=== PATIENT | male | born 1980 | race Caucasian/White ===

== ENCOUNTER 2017-05-07 14:15 | Observation (INO) | payer OTHER ==
[2017-05-07] MEDS ORDERED: Sodium Chloride 0.9% 1000 ML 1,000 ML IV STA ×2 (14:27→15:40)
[2017-05-07] MEDS ORDERED: THIAMINE 200 MG/2 ML IV ONE (14:27)
--- NOTE | 2017-05-07 14:34 | ERPHSYRPT ---
- History of Present Illness Time Seen by Provider: 05/07/17 14:28 Source: patient Exam Limitations: other (patient quite suspicious and confrontational) Patient Subjective Stated Complaint: PT BROUGHT TO ED AFTER DRINKING THIS AM BY POLICE-WHEN ASKED IF HE WAS TRYING TO HURT HIMSELF PT STATES THAT HE DOESN'T KNOW-BECOMES TEARFUL-PT DOES NOT ANSWER WHEN ASKED WHAT HAPPENED TODAY-PT DENIES ANY DRUG USE Triage Nursing Assessment: PT PINK WARM ET DRY-ALERT TO PERSON PLACE-UNSURE OF TIME-MOVING CURT XTREMITIES WITH EASE-RESP NONLABORED ET EASY-PUPILS REACTIVE Physician History: This is a 36-year-old white male brought by his father. Patient is not quite sure why he is here, he states that he has been feeling bad for a long time he states she's been depressed when I initially asked him if he is wanting to hurt himself he says yes when I ask him how he wants to hurt himself, he states "what are you talking about man" Patient appears to be alert active He will not answer my questions after short interview He does allow me to examine him. Past medical history patient does not give past medical history to me The patient becomes confrontational start saying what are you trying to do when I asked him about medical problems. Timing/Duration: today Severity: moderate Associated Symptoms: other (patient feeling depressed), No nausea, No vomiting, No abdominal pain, No shortness of breath, No heartburn, No diaphoresis, No cough, No chills, No chest pain, No fever, No headaches, No loss of appetite, No malaise, No rash, No syncope, No seizure, No weakness Allergies/Adverse Reactions: No Known Drug Allergies Allergy (Unverified 05/07/17 14:25) Home Medications: No Home Meds 1 ea MC UD 05/07/17 [History] Hx Tetanus, Diphtheria Vaccination/Date Given: No Hx Influenza Vaccination/Date Given: No Hx Pneumococcal Vaccination/Date Given: No Immunizations Up to Date: Yes - Review of Systems Constitutional: No Fever, No Chills Eyes: No Symptoms Ears, Nose, & Throat: No Symptoms Respiratory: No Cough, No Dyspnea Cardiac: No Chest Pain, No Edema, No Syncope Abdominal/Gastrointestinal: No Abdominal Pain, No Nausea, No Vomiting, No Diarrhea Genitourinary Symptoms: No Dysuria Musculoskeletal: No Back Pain, No Neck Pain Skin: No Rash Neurological: No Dizziness, No Focal Weakness, No Sensory Changes Psychological: Other (patient admits to feeling depressed will not discuss alcohol or drug use, initially states he wants to harm himself, but then when I ask him if he has a plan he"wha statest are you talking about" when I ask him about alcohol or drugs he states" what are you trying to do") Endocrine: No Symptoms All Other Systems: Reviewed and Negative - Past Medical History Pertinent Past Medical History: Yes Cardiac History: Hypertension - Past Surgical History Past Surgical History: No - Social History Smoking Status: Current every day smoker How long have you smoked: YRS Exposure to second hand smoke: Yes Drug Use: none Patient Lives Alone: No - Nursing Vital Signs Nursing Vital Signs: Initial Vital Signs Temperature 98.4 F Temperature Source Oral Pulse Rate 95 Respiratory Rate 20 Blood Pressure [Right Arm] 170/99 Pain Intensity 0 - Physical Exam General Appearance: other (well-developed well-nourished white male flushed in appearance oriented to himself somewhat uncooperative) Eye Exam: PERRL/EOMI, eyes nml inspection Ears, Nose, Throat Exam: normal ENT inspection, TMs normal, pharynx normal, moist mucous membranes Neck Exam: normal inspection, non-tender, supple, full range of motion Respiratory Exam: normal breath sounds, lungs clear, No respiratory distress Cardiovascular Exam: regular rate/rhythm, normal heart sounds, normal peripheral pulses Gastrointestinal/Abdomen Exam: soft, normal bowel sounds, No tenderness, No mass Back Exam: normal inspection, normal range of motion, No CVA tenderness, No vertebral tenderness Extremity Exam: normal inspection, normal range of motion, pelvis stable Neurologic Exam: alert, oriented x 3, normal mood/affect, nml cerebellar function, nml station & gait, sensation nml, No cooperative, No motor deficits Skin Exam: other (flushed in appearance) SpO2 Interpretation: normal (98%) SpO2: 98 Oxygen Delivery: Room Air - Course Nursing assessment & vital signs reviewed: Yes EKG Interpreted by Me: RATE (87 bpm), Sinus Rhythm, NORMAL AXIS, Other (EKG sinus rhythm 87 bpm with moderate amount of artifact 87 bpm normal axis essentially normal EKG) Ordered Tests: Active Orders 24 hr Category Date Time Status EKG-ER Only STAT Care 05/07/17 14:27 Active Psychiatric Evaluation STAT Care 05/07/17 16:55 Active ACETAMINOPHEN Stat Lab 05/07/17 14:39 Completed CBC W DIFF Stat Lab 05/07/17 14:39 Completed CK-Creatinine Phosphokinase Stat Lab 05/07/17 15:09 Completed CMP Stat Lab 05/07/17 14:39 Completed Ethyl Alcohol,Urine Stat Lab 05/07/17 17:30 Completed SALICYLATE Stat Lab 05/07/17 14:39 Completed TROPONIN Q3H Lab 05/07/17 14:39 Completed TROPONIN Q3H Lab 05/07/17 18:15 Ordered TROPONIN Q3H Lab 05/07/17 21:15 Ordered TROPONIN Q3H Lab 05/08/17 00:15 Ordered TROPONIN Q3H Lab 05/08/17 03:15 Ordered UA W/ MICROSCOPIC Stat Lab 05/07/17 17:30 Completed Urine Triage Profile Stat Lab 05/07/17 17:30 Completed Medication Summary Generic Name Dose Route Start Last Admin Trade Name Freq PRN Reason Stop Dose Admin Potassium Chloride/Sodium Chloride 1,000 mls @ 125 mls/hr 05/07/17 16:30 Sodium Chloride 0.45% W/ 20 Meq Kcl IV 06/06/17 16:29 .Q8H MEGAN Discontinued Medications Generic Name Dose Route Start Last Admin Trade Name Freq PRN Reason Stop Dose Admin Sodium Chloride 1,000 mls @ 999 mls/hr 05/07/17 14:27 05/07/17 14:44 Sodium Chloride 0.9% 1000 Ml IV 05/07/17 15:27 999 mls/hr .Q1H1M STA Administration Sodium Chloride Confirm 05/07/17 14:41 Sodium Chloride 0.9% 1000 Ml Administered 05/07/17 14:42 Dose 1,000 mls @ ud .ROUTE .STK-MED ONE Sodium Chloride 1,000 mls @ 999 mls/hr 05/07/17 15:40 05/07/17 15:43 Sodium Chloride 0.9% 1000 Ml IV 05/07/17 16:40 999 mls/hr .Q1H1M STA Administration Sodium Chloride Confirm 05/07/17 15:40 Sodium Chloride 0.9% 1000 Ml Administered 05/07/17 15:41 Dose 1,000 mls @ ud .ROUTE .STK-MED ONE Thiamine HCl 100 mg 05/07/17 14:27 05/07/17 14:44 Thiamine 200 Mg/2 Ml IV 05/07/17 14:28 100 mg STAT ONE Administration Thiamine HCl Confirm 05/07/17 14:41 Thiamine 200 Mg/2 Ml Administered 05/07/17 14:42 Dose 200 mg .ROUTE .STK-MED ONE Lab/Rad Data: Laboratory Result Diagrams 05/07/17 14:39 05/07/17 14:39 Laboratory Results 05/07/17 05/07/17 05/07/17 Range/Units 17:30 17:30 17:30 WBC (4.0-10.5) K/mm3 RBC (4.1-5.6) M/mm3 Hgb (12.5-18.0) gm/dl Hct (42-50) % MCV (78-100) fl MCH (26-32) pg MCHC (32-36) g/dl RDW (11.5-14.0) % Plt Count (150-450) K/mm3 MPV (6-9.5) fl Gran % (36.0-66.0) % Lymphocytes % (24.0-44.0) % Monocytes % (0.0-12.0) % Eosinophils % (0.00-5.0) % Basophils % (0.0-0.4) % Basophils # (0-0.4) Sodium (136-145) mEq/L Potassium (3.5-5.1) mEq/L Chloride (98-107) mEq/L Carbon Dioxide (21-32) mEq/L Anion Gap (5-15) MEQ/L BUN (9-20) mg/dL Creatinine (0.55-1.30) mg/dl Estimated GFR ML/MIN Glucose (70-110) MG/DL Calcium (8.5-10.1) mg/dL Total Bilirubin (0.2-1.0) mg/dL AST (15-37) U/L ALT (12-78) U/L Alkaline Phosphatase (46-116) U/L Creatine Kinase (39-308) U/L Troponin I (0.000-0.056) ng/ml Serum Total Protein (6.4-8.2) gm/dL Albumin (3.4-5.0) g/dL Ur Collection Type CLEAN CATCH Urine Color YELLOW (YELLOW) Urine Appearance CLEAR (CLEAR) Urine pH 5.5 5.5 (5-6) Ur Specific Union 1.015 (1.005-1.025) Urine Protein TRACE (Negative) Urine Glucose (UA) NEGATIVE (NEGATIVE) mg/dL Urine Ketones NEGATIVE (NEGATIVE) Urine Nitrite NEGATIVE (NEGATIVE) Urine Bilirubin NEGATIVE (NEGATIVE) Urine Urobilinogen 1 (0-1) mg/dL Urine WBC (Auto) NEGATIVE (NEGATIVE) Urine RBC (Auto) TRACE NON-HEM (0-5) Kavon/ul Urine Microscopic RBC 0-2 (0-2) /HPF Ur Epithelial Cells FEW (FEW) /HPF Salicylates (2.8-20.0) mg/dl Urine Opiates Level NEG. (NEGATIVE) Ur Methadone NEG. (NEGATIVE) Acetaminophen (10-30) ug/ml Urine Barbiturates NEG. (NEGATIVE) Ur Phencyclidine (PCP) NEG. (NEGATIVE) Urine Amphetamine NEG. (NEGATIVE) U Benzodiazepine Level NEG. (NEGATIVE) Urine Cocaine NEG. (NEGATIVE) Urine Marijuana (THC) NEG. (NEGATIVE) Urine Ethyl Alcohol 385 H (0.00-20) mg/dl Specimen Received 05/07/17:1730 05/07/17 05/07/17 05/07/17 Range/Units 15:09 14:39 14:39 WBC (4.0-10.5) K/mm3 RBC (4.1-5.6) M/mm3 Hgb (12.5-18.0) gm/dl Hct (42-50) % MCV (78-100) fl MCH (26-32) pg MCHC (32-36) g/dl RDW (11.5-14.0) % Plt Count (150-450) K/mm3 MPV (6-9.5) fl Gran % (36.0-66.0) % Lymphocytes % (24.0-44.0) % Monocytes % (0.0-12.0) % Eosinophils % (0.00-5.0) % Basophils % (0.0-0.4) % Basophils # (0-0.4) Sodium 144 (136-145) mEq/L Potassium 3.7 (3.5-5.1) mEq/L Chloride 109 H (98-107) mEq/L Carbon Dioxide 22.8 (21-32) mEq/L Anion Gap 15.4 H (5-15) MEQ/L BUN 8 L (9-20) mg/dL Creatinine 1.03 (0.55-1.30) mg/dl Estimated GFR > 60 ML/MIN Glucose 110 (70-110) MG/DL Calcium 8.2 L (8.5-10.1) mg/dL Total Bilirubin 0.90 (0.2-1.0) mg/dL AST 151 H (15-37) U/L ALT 153 H (12-78) U/L Alkaline Phosphatase 92 (46-116) U/L Creatine Kinase 140 (39-308) U/L Troponin I < 0.017 (0.000-0.056) ng/ml Serum Total Protein 7.6 (6.4-8.2) gm/dL Albumin 3.6 (3.4-5.0) g/dL Ur Collection Type Urine Color (YELLOW) Urine Appearance (CLEAR) Urine pH (5-6) Ur Specific Union (1.005-1.025) Urine Protein (Negative) Urine Glucose (UA) (NEGATIVE) mg/dL Urine Ketones (NEGATIVE) Urine Nitrite (NEGATIVE) Urine Bilirubin (NEGATIVE) Urine Urobilinogen (0-1) mg/dL Urine WBC (Auto) (NEGATIVE) Urine RBC (Auto) (0-5) Kavon/ul Urine Microscopic RBC (0-2) /HPF Ur Epithelial Cells (FEW) /HPF Salicylates < 2.8 L (2.8-20.0) mg/dl Urine Opiates Level (NEGATIVE) Ur Methadone (NEGATIVE) Acetaminophen < 2.0 L (10-30) ug/ml Urine Barbiturates (NEGATIVE) Ur Phencyclidine (PCP) (NEGATIVE) Urine Amphetamine (NEGATIVE) U Benzodiazepine Level (NEGATIVE) Urine Cocaine (NEGATIVE) Urine Marijuana (THC) (NEGATIVE) Urine Ethyl Alcohol (0.00-20) mg/dl Specimen Received 05/07/17 Range/Units 14:39 WBC 7.1 (4.0-10.5) K/mm3 RBC 4.80 (4.1-5.6) M/mm3 Hgb 16.6 (12.5-18.0) gm/dl Hct 47.4 (42-50) % MCV 98.8 (78-100) fl MCH 34.6 H (26-32) pg MCHC 35.0 (32-36) g/dl RDW 13.8 (11.5-14.0) % Plt Count 201 (150-450) K/mm3 MPV 9.9 H (6-9.5) fl Gran % 51.4 (36.0-66.0) % Lymphocytes % 41.6 (24.0-44.0) % Monocytes % 5.3 (0.0-12.0) % Eosinophils % 1.3 (0.00-5.0) % Basophils % 0.4 (0.0-0.4) % Basophils # 0.03 (0-0.4) Sodium (136-145) mEq/L Potassium (3.5-5.1) mEq/L Chloride (98-107) mEq/L Carbon Dioxide (21-32) mEq/L Anion Gap (5-15) MEQ/L BUN (9-20) mg/dL Creatinine (0.55-1.30) mg/dl Estimated GFR ML/MIN Glucose (70-110) MG/DL Calcium (8.5-10.1) mg/dL Total Bilirubin (0.2-1.0) mg/dL AST (15-37) U/L ALT (12-78) U/L Alkaline Phosphatase (46-116) U/L Creatine Kinase (39-308) U/L Troponin I (0.000-0.056) ng/ml Serum Total Protein (6.4-8.2) gm/dL Albumin (3.4-5.0) g/dL Ur Collection Type Urine Color (YELLOW) Urine Appearance (CLEAR) Urine pH (5-6) Ur Specific Union (1.005-1.025) Urine Protein (Negative) Urine Glucose (UA) (NEGATIVE) mg/dL Urine Ketones (NEGATIVE) Urine Nitrite (NEGATIVE) Urine Bilirubin (NEGATIVE) Urine Urobilinogen (0-1) mg/dL Urine WBC (Auto) (NEGATIVE) Urine RBC (Auto) (0-5) Kavon/ul Urine Microscopic RBC (0-2) /HPF Ur Epithelial Cells (FEW) /HPF Salicylates (2.8-20.0) mg/dl Urine Opiates Level (NEGATIVE) Ur Methadone (NEGATIVE) Acetaminophen (10-30) ug/ml Urine Barbiturates (NEGATIVE) Ur Phencyclidine (PCP) (NEGATIVE) Urine Amphetamine (NEGATIVE) U Benzodiazepine Level (NEGATIVE) Urine Cocaine (NEGATIVE) Urine Marijuana (THC) (NEGATIVE) Urine Ethyl Alcohol (0.00-20) mg/dl Specimen Received - Progress Progress: improved Progress Note: 05/07/17 14:36 This is a 36-year-old white male who is brought in by his father however the [employer] are present on his arrival. The patient's father apparently expressed concern over the patient's condition. When I asked the patient was going on with him he states that he feels really bad he's been depressed and when I asked him if he wants to harm himself he initially says yes. Then when I asked him if he was to harm himself how he would he do it he suddenly becomes somewhat confrontational stating "what are you talking about". When I repeat that he had mentioned that he wanted to harm himself he really did not give me an answer to this. When I asked him if he had been drinking or any substances she states "what are you trying to do. Patient did allow me to look at him but became quite suspicious he would push my hands away as I listened to his heart and the lungs and abdomen he did allow me to look at him however. 05/07/17 16:08 Patient is stable he is somnolent at this time Patient does have elevated liver enzymes (ELT and AST acetaminophen level and salicylate level within normal limits Nurses apparently are unable to get the patient to provide a urine. He is being given IV fluids. Will await urine alcohol level and urine drug screen. 05/07/17 16:28 Patient is now waking up he does not appear to be in acute distress he is now cooperative. Still awaiting urine, UDS, urine alcohol level He has received 2 L of normal saline IV will begin IV half-normal saline with 20 mEq per liter to run at 125 mL per hour. 05/07/17 18:03 Patient's blood alcohol level 0.385 patient's AST 151 and AL T 1 53. Case is discussed with Dr. Khalil will place patient on observation telemetry - Departure Time of Disposition: 18:04 Departure Disposition: Observation Clinical Impression: ALCOHOLS TOXICITY, Suicidal ideation Alcohol intoxication Qualifiers: Complication of substance-induced condition: with unspecified complication Qualified Code(s): F10.929 - Alcohol use, unspecified with intoxication, unspecified Condition: Fair Critical Care Time: No
[2017-05-07] MEDS ORDERED: Sodium Chloride 0.9% 1000 ML 1,000 ML ONE ×2 (14:41→15:40)
[2017-05-07] MEDS ORDERED: THIAMINE 200 MG/2 ML ONE (14:41)
[2017-05-07 14:43] LABS: BASOPHIL % 0.4 % (0.0-0.4); Eosinophil % 1.3 % (0.00-5.0); Granulocytes % 51.4 % (36.0-66.0); Lymphocytes % 41.6 % (24.0-44.0); Mean Cell Volume 98.8 fl (78-100); Mean Corpuscular Hemoglobin 34.6 pg (26-32); Mean Platelet Volume 9.9 fl (6-9.5); Monocytes % 5.3 % (0.0-12.0); Platelet Count 201 K/mm3 (150-450); Red Cell Distribution Width 13.8 % (11.5-14.0); White Blood Count 7.1 K/mm3 (4.0-10.5)
[2017-05-07 15:01] LABS: ALBUMIN 3.6 g/dL (3.4-5.0); ALKALINE PHOSPHATASE 92 U/L (46-116); ANION GAP 15.4 MEQ/L (5-15); BLOOD UREA NITROGEN 8 mg/dL (9-20); CHLORIDE 109 mEq/L (98-107); Carbon Dioxide 22.8 mEq/L (21-32); Glucose 110 MG/DL (70-110); Potassium 3.7 mEq/L (3.5-5.1); SGOT/AST 151 U/L (15-37); SGPT/ALT 153 U/L (12-78); SODIUM 144 mEq/L (136-145); Total Protein 7.6 gm/dL (6.4-8.2)
[2017-05-07 15:04] LABS: ACETAMINOPHEN < 2.0 ug/ml (10-30)
[2017-05-07] MEDS ORDERED: SODIUM CHLORIDE 0.45% W/ 20 mEq KCL 1,000 ML IV SCH (16:30)
[2017-05-07 17:34] LABS: ADD URINE CULTURE? NO (NO); COMPLETE URINE MICROSCOPIC? YES; Collection Type CLEAN CATCH; Epithelial Cells FEW /HPF (FEW); Ph 5.5 (5-6)
[2017-05-07] MEDS ORDERED: Zofran 4 MG/2 ML VIAL IV PRN (19:13)
[2017-05-07] MEDS: D5W/0.45NS W/ 20mEq KCl 1000 ML 1,000 ML IV SCH (19:20)
[2017-05-07] MEDS: Ativan 2 MG/1 ML VIAL IV PRN ×3 (19:40→23:57)
[2017-05-08] MEDS: Ativan 2 MG/1 ML VIAL IV PRN ×5 (03:58→16:45)
[2017-05-08] MEDS: D5W/0.45NS W/ 20mEq KCl 1000 ML 1,000 ML IV SCH ×2 (05:11→15:26)
[2017-05-08 06:01] LABS: BASOPHIL % 0.6 % (0.0-0.4); Eosinophil % 1.5 % (0.00-5.0); Granulocytes % 50.2 % (36.0-66.0); Lymphocytes % 39.6 % (24.0-44.0); Mean Cell Volume 99.3 fl (78-100); Mean Corpuscular Hemoglobin 34.6 pg (26-32); Mean Platelet Volume 10.1 fl (6-9.5); Monocytes % 8.1 % (0.0-12.0); Platelet Count 176 K/mm3 (150-450); Red Blood Count 4.16 M/mm3 (4.1-5.6); Red Cell Distribution Width 13.3 % (11.5-14.0); White Blood Count 5.3 K/mm3 (4.0-10.5)
[2017-05-08 06:06] LABS: ALBUMIN 2.9 g/dL (3.4-5.0); ALKALINE PHOSPHATASE 74 U/L (46-116); ANION GAP 14.3 MEQ/L (5-15); BLOOD UREA NITROGEN 6 mg/dL (9-20); CHLORIDE 109 mEq/L (98-107); Carbon Dioxide 24.9 mEq/L (21-32); Glucose 97 MG/DL (70-110); Potassium 3.8 mEq/L (3.5-5.1); SGOT/AST 129 U/L (15-37); SGPT/ALT 128 U/L (12-78); SODIUM 144 mEq/L (136-145); Total Protein 6.3 gm/dL (6.4-8.2)
--- NOTE | 2017-05-08 07:06 | PCM.HP ---
History of Present Illness - Chief Complaint Chief Complaint: Behavior Problems Date: 05/08/17 History of Present Illness: is a 36 year old male. with history of anxiety and polysubstance abuse who has been drinking very heavily about 1/2 gallon of hard alcohol daily and was drinking heavily yesterday and making mention of suicidal ideation and his father brought him to the ED. where he was acutely intoxicated and unable to provide a clear history. he was detained for his safety. He states he was going through lots of stress with a job loss and other things and losing his insurance but does not want to kill himself and does not have any previous attempts. He thinks he needs to quit drinking but he is unsure if he is willing to stay to go through withdrawal treatment here. He admits to previous abuse of prescription pain killers and times of use of methamphetamine as well. He denies recent use. He currently denies any problems. - Review of Systems Constitutional: No Fever, No Chills Eyes: No Symptoms Ears, Nose, & Throat: No Symptoms Respiratory: No Cough, No Short Of Breath Cardiac: No Chest Pain, No Edema, No Syncope Abdominal/Gastrointestinal: No Abdominal Pain, No Nausea, No Vomiting, No Diarrhea Genitourinary Symptoms: No Dysuria Musculoskeletal: No Back Pain, No Neck Pain Skin: No Rash Neurological: No Dizziness, No Focal Weakness, No Sensory Changes Psychological: No Symptoms Endocrine: No Symptoms Hematologic/Lymphatic: No Symptoms Immunological/Allergic: No Symptoms Medications & Allergies Home Medications: Home Medication List No Home Meds 1 ea MC UD 05/07/17 [History Confirmed 05/07/17] Allergies/Adverse Reactions: Allergies Allergy/AdvReac Type Severity Reaction Status Date / Time No Known Drug Allergies Allergy Unverified 05/07/17 14:25 - Past Medical History Past Medical History: Yes Cardiac History: Hypertension - Past Surgical History Past Surgical History: No - Social History Smoking Status: Current every day smoker How long have you smoked: YRS Exposure to second hand smoke: Yes Alcohol: Daily Drug Use: none - Physical Exam Vital Signs: Vital Signs - 24 hr Temp Pulse Resp BP Pulse Ox 05/08/17 04:00 97.9 F 93 H 18 124/86 97 05/08/17 00:00 18 131/99 05/07/17 23:05 18 05/07/17 20:00 98.4 F 88 18 130/94 98 05/07/17 19:42 98.4 F 88 18 130/94 98 05/07/17 18:05 98 05/07/17 17:00 95 H 20 170/99 96 05/07/17 16:20 94 H 18 99 05/07/17 15:15 88 16 155/90 97 05/07/17 14:20 98.4 F 93 H 18 162/90 98 General Appearance: no apparent distress, alert Neurologic Exam: alert, oriented x 3, cooperative, normal mood/affect, nml cerebellar function, nml station & gait, sensation nml, No motor deficits Eye Exam: PERRL/EOMI, eyes nml inspection Ears, Nose, Throat Exam: pharynx normal, moist mucous membranes Neck Exam: normal inspection, non-tender, supple, full range of motion Respiratory Exam: rhonchi, wheezing, No respiratory distress Cardiovascular Exam: regular rate/rhythm, normal heart sounds, normal peripheral pulses Gastrointestinal/Abdomen Exam: soft, normal bowel sounds, No tenderness, No mass Back Exam: normal inspection, normal range of motion, No CVA tenderness, No vertebral tenderness Extremity Exam: normal inspection, normal range of motion, pelvis stable Skin Exam: normal color, warm, dry, No rash Lymphatic Exam: No adenopathy Results - Labs Lab/Micro Results: Lab Results-Last 24 Hours 05/08/17 05/08/17 Range/Units 05:05 05:05 WBC 5.3 (4.0-10.5) K/mm3 RBC 4.16 (4.1-5.6) M/mm3 Hgb 14.4 (12.5-18.0) gm/dl Hct 41.3 L (42-50) % MCV 99.3 (78-100) fl MCH 34.6 H (26-32) pg MCHC 34.9 (32-36) g/dl RDW 13.3 (11.5-14.0) % Plt Count 176 (150-450) K/mm3 MPV 10.1 H (6-9.5) fl Gran % 50.2 (36.0-66.0) % Lymphocytes % 39.6 (24.0-44.0) % Monocytes % 8.1 (0.0-12.0) % Eosinophils % 1.5 (0.00-5.0) % Basophils % 0.6 (0.0-0.4) % Basophils # 0.03 (0-0.4) Sodium 144 (136-145) mEq/L Potassium 3.8 (3.5-5.1) mEq/L Chloride 109 H (98-107) mEq/L Carbon Dioxide 24.9 (21-32) mEq/L Anion Gap 14.3 (5-15) MEQ/L BUN 6 L (9-20) mg/dL Creatinine 0.94 (0.55-1.30) mg/dl Estimated GFR > 60 ML/MIN Glucose 97 (70-110) MG/DL Calcium 8.0 L (8.5-10.1) mg/dL Total Bilirubin 1.00 (0.2-1.0) mg/dL AST 129 H (15-37) U/L ALT 128 H (12-78) U/L Alkaline Phosphatase 74 (46-116) U/L Serum Total Protein 6.3 L (6.4-8.2) gm/dL Albumin 2.9 L (3.4-5.0) g/dL Assessment/Plan (1) Alcohol intoxication Current Visit: Yes Status: Acute Qualifiers: Complication of substance-induced condition: with unspecified complication Qualified Code(s): F10.929 - Alcohol use, unspecified with intoxication, unspecified Assessment & Plan: we discussed the harms of the alcohol and his elevated liver enzymes and his likely dependence given his chronic daily amounts and we recommend staying inpatient to treat the withdrawal from alcohol if he plans to quit. He does not seem agreeable to this at this point but is thinking about it. we will check a urine alcohol level again to be sure it is out of the system and when negative get psychiatric consult with the suicidal ideation for further recommendations on his treatment. he requested screening for hiv and hepatitis and high risk profile is ordered. (2) Suicidal ideation Current Visit: Yes Status: Acute Code(s): R45.851 - SUICIDAL IDEATIONS (3) Alcohol dependence Current Visit: Yes Status: Acute Code(s): F10.20 - ALCOHOL DEPENDENCE, UNCOMPLICATED (4) Polysubstance abuse Current Visit: Yes Status: Acute Code(s): F19.10 - OTHER PSYCHOACTIVE SUBSTANCE ABUSE, UNCOMPLICATED
[2017-05-08] MEDS ORDERED: Nicoderm CQ 21 MG TOP SCH (07:30)
[2017-05-08] MEDS ORDERED: VITAMIN B-1 100 MG PO SCH (10:00)
[2017-05-08 12:04] LABS: CHLAMYDIA URINE NEGATIVE; GC URINE NEGATIVE
[2017-05-08 16:20] VITALS: BP 146/89; PULSE 83; O2SAT 100
--- NOTE | 2017-05-08 17:49 | PCM.DCORD ---
- Discharge Discharge Date: 05/08/17 Disposition: Home, Self-Care Condition: Fair Prescriptions: New Fluoxetine HCl 20 mg PO DAILY #30 capsule Gabapentin 300 mg PO TID #45 capsule Continue No Home Meds 1 lay WORLEY UD Follow up with: [facility] [Provider Group] - 1 Day
[2017-05-10 18:42] LABS: Hepatitis B Sur Ag Screen Non Reactive (Non Reactive); Hepatitis B Surface Ab.Quant 51.24 mIU/mL (0.00-8.49)
== END 2017-05-08 18:20 | disposition home or self-care (01) ==
LOC: ED 14:15 → ICU 18:40
PROVIDERS: ADMIT Internal Medicine; ATTEND Internal Medicine
DX: F10.929 Alcohol use, unspecified with intoxication, unspecified (principal); R45.851 Suicidal ideations; F19.10 Other psychoactive substance abuse, uncomplicated; I10 Essential (primary) hypertension; Z72.0 Tobacco use
CPT/HCPCS: 36000; 36415; 80053; 80307; 80320; 81000; 82550; 83986; 84484; 85025; 86317; 86592; 86701; 86702; 86803; 87340; 87389; 87491; 87591; 90791; 93005; 93268; 96360; 96361; 96374; 99285; G0378; G0481; J2060; Q3014; A9270-GY

== ENCOUNTER 2017-05-12 19:43 | Emergency (ER) | payer OTHER ==
--- NOTE | 2017-05-12 19:53 | ERPHSYRPT ---
- History of Present Illness Time Seen by Provider: 05/12/17 19:43 Source: patient Exam Limitations: no limitations Physician History: PT STATES HE HAS BEEN DRINKING ALCOHOLIC BEVERAGES TODAY. PT IS HERE FOR LONG TERM CLEARANCE. PT DENIES CHEST PAIN, FEVER, SHORTNESS OF AIR, HEADACHE. Allergies/Adverse Reactions: No Known Drug Allergies Allergy (Verified 05/12/17 19:45) Home Medications: No Home Meds 1 ea UD 05/07/17 [History] Hx Tetanus, Diphtheria Vaccination/Date Given: No Hx Influenza Vaccination/Date Given: No Hx Pneumococcal Vaccination/Date Given: No - Review of Systems Constitutional: No Fever Respiratory: No Dyspnea Cardiac: No Chest Pain Neurological: No Headache All Other Systems: Reviewed and Negative - Past Medical History Pertinent Past Medical History: Yes Cardiac History: Hypertension - Past Surgical History Past Surgical History: No - Social History Smoking Status: Current every day smoker How long have you smoked: YRS Exposure to second hand smoke: Yes Drug Use: none Patient Lives Alone: No - Physical Exam General Appearance: alert Eye Exam: other (PUPILS 7MM DIAMETER AND REACTIVE TO LIGHT; EOMI.) Ears, Nose, Throat Exam: pharynx normal, moist mucous membranes Neck Exam: normal inspection Respiratory Exam: lungs clear Cardiovascular Exam: normal heart sounds Gastrointestinal/Abdomen Exam: normal bowel sounds Back Exam: normal range of motion Extremity Exam: No swelling Neurologic Exam: alert, cooperative Skin Exam: warm, dry - Course Nursing assessment & vital signs reviewed: Yes - Departure Time of Disposition: 19:56 Departure Disposition: Longterm/[facility] Clinical Impression: ALCOHOL CONSUMPTION Condition: Stable Critical Care Time: No Instructions: Alcohol Abuse and Alcoholism Additional Instructions: FOLLOW UP WITH PRIVATE DOCTOR TOMORROW.
[2017-05-12 20:07] VITALS: BP 141/82
[2017-05-12 20:08] VITALS: PULSE 98; O2SAT 100
== END 2017-05-12 20:08 | disposition home or self-care (01) ==
LOC: ED 19:43
DX: F10.99 Alcohol use, unspecified with unspecified alcohol-induced disorder (principal); I10 Essential (primary) hypertension
CPT/HCPCS: 99284